=== PATIENT | male | born 1980 | race Two or more races ===

== ENCOUNTER 2020-09-04 06:11 | Emergency (ER) | payer MEDICAID ==
[~2020-09-04] VITALS: Ht 177.8 cm; Wt 111.0 kg
[2020-09-04 06:16] VITALS: BP 141/102
--- NOTE | 2020-09-04 06:26 | NUR ---
CC OF LEFT LOWER DENTAL PAIN X4 DAYS, DENIES FEVER AND CHILLS. HAS HAD ABSCESS IN PAST. GIRLFRIEND AT BEDSIDE
[2020-09-04] MEDS ORDERED: LIDOCAINE GEL 2%, 5ML TP ONE (07:00)
== END 2020-09-04 06:47 | disposition home or self-care (01) ==
LOC: ED 06:45
DX: K04.7 Periapical abscess without sinus (principal); K08.89 Other specified disorders of teeth and supporting structures; R22.0 Localized swelling, mass and lump, head; F17.200 Nicotine dependence, unspecified, uncomplicated
CPT/HCPCS: 99283